=== PATIENT | female | born 1985 | race Caucasian/White ===

== ENCOUNTER → 2018-06-02 18:55 | Observation (INO) ==
[2018-06-02 18:31] LABS: Bilirubin,Urine Negative (Negative); Blood,Urine Negative (Negative); Clarity,Urine Clear (Clear); Color,Urine Dark Yellow (Yellow); Glucose,Urine (UA) Normal (Normal); Ketones,Urine Trace mg/dL (Negative); Leukocyte Esterase,Urine Negative (Negative); Nitrite,Urine Negative (Negative); PH,Urine 5.5 pH Units (5.0-8.0); Protein,Urine Trace mg/dL (Neg-Trace); Specific Gravity,Urine 1.029 (1.010-1.025); Urobilinogen,Urine Normal (Normal)
[2018-06-02 18:34] LABS: Bacteria,Urine None Seen per hpf (None-Few); Hyaline Casts,Urine None Seen per lpf (None-Few); RBC,Urine 0-3 per hpf (0-3); Squamous Epithelial Cell,Urine Many per lpf (None-Few)
[2018-06-02 18:40] LABS: Amphetamine Screen,Urine Negative ng/mL (Cutoff=1000); Barbiturate Screen,Urine Negative ng/mL (Cutoff=200); Benzodiazepines Screen,Urine Negative ng/mL (Cutoff=200); Cannabinoid Screen,Urine Negative ng/mL (Cutoff = 50); Cocaine Screen,Urine Negative ng/mL (Cutoff= 300); Opiate Screen,Urine Negative ng/mL (Cutoff=300); Phencyclidine Screen,Urine Negative ng/mL (Cutoff=25)
[2018-06-02 18:50] LABS: Calcium Oxalate Crystals,Urine Present
--- NOTE | 2018-06-02 18:54 | Discharge Summary ---
Date of Encounter: 06/02/18 Time of Encounter: 18:54 - Discharge Diagnosis (1) 18 weeks gestation of Priority: Secondary Status: Acute Comments: Follow up with Dr. Vazquez as scheduled Discharge home (2) Back pain affecting in second trimester Priority: Primary Status: Acute Comments: Apply heat prn massage prn Return for worsening symptoms - Discharge Medications Home Medications: Acetaminophen [Tylenol] 650 mg PO Q6H PRN tablet 06/02/18 [Rx] Lantus 15 units SQ DAILY 06/02/18 [History] Vit Calc,Iron,Folic [ Vitamins] 1 tab PO DAILY 06/02/18 [ History] metFORMIN [Glucophage] 750 mg PO BID 06/02/18 [History] Allergies/Adverse Reactions: 3 Allergy/AdvReac Type Severity Reaction Status Date / Time No Known Allergies Allergy Verified 06/02/18 18:08 Data Procedures and tests throughout hospitalization: Laboratory Tests 06/02/18 06/02/18 18:20 18:20 Urine Color Dark Yellow Urine Clarity Clear Urine pH 5.5 Ur Specific [place] 1.029 H Urine Protein Trace Urine Glucose (UA) Normal Urine Ketones Trace H Urine Blood Negative Urine Nitrite Negative Urine Bilirubin Negative Urine Urobilinogen Normal Ur Leukocyte Esterase Negative Urine Microscopic RBC 0-3 Urine Microscopic WBC 3-5 H Ur Squamous Epith Cells Many H Calcium Oxalate Crystal Present Urine Bacteria None Seen Hyaline Casts None Seen Ur Culture Indicated? NO Urine Opiates Screen Negative Ur Barbiturates Screen Negative Ur Phencyclidine Scrn Negative Ur Amphetamines Screen Negative U Benzodiazepines Scrn Negative Urine Cocaine Screen Negative U Marijuana (THC) Screen Negative Ur Drug Screen Interp See Below Labs on day of discharge: Labs from last 24 hours 06/02/18 06/02/18 18:20 18:20 Urine Color Dark Yellow Urine Clarity Clear Urine pH 5.5 Ur Specific [place] 1.029 H Urine Protein Trace Urine Glucose (UA) Normal Urine Ketones Trace H Urine Blood Negative Urine Nitrite Negative Urine Bilirubin Negative Urine Urobilinogen Normal Ur Leukocyte Esterase Negative Urine Microscopic RBC 0-3 Urine Microscopic WBC 3-5 H Ur Squamous Epith Cells Many H Calcium Oxalate Crystal Present Urine Bacteria None Seen Hyaline Casts None Seen Ur Culture Indicated? NO Urine Opiates Screen Negative Ur Barbiturates Screen Negative Ur Phencyclidine Scrn Negative Ur Amphetamines Screen Negative U Benzodiazepines Scrn Negative Urine Cocaine Screen Negative U Marijuana (THC) Screen Negative Ur Drug Screen Interp See Below Date of admission: 06/02/18 17:53 Discharging clinician: Geneva Castillo Anticipated date of discharge: 06/02/18 - Patient Status Disposition: Home, Self-Care Condition: Good Functional capacity at discharge: independent ambulation Overall status at discharge: patient is progressing back to baseline - Discharge Instructions Follow Up With: Maggi Vazquez MD [Partnered Physician] - - Diet and Activity Activity: increase activity as tolerated Diet: regular diet Hospital Course [employer] Reason for admission: other Discharge diagnosis: other Hospital course: Ms. Werner presents with c/o right sided low back pain with urinary urgency, frequency, and dysuria since 1900 last night. She also c/o "not feeling right". Urinary tests negative. Increase hydration. Time Attestation: Total time spent providing and/or coordinating discharge services: Time Spent: Less than 30 minutes Exam - Constitutional General appearance IM: A&O X 3, morbidly obese, pleasant, no acute distress, answers questions appropriately - Respiratory Respiratory exam: Present: CTAB - Cardiovascular Cardiovascular exam IM: Present: RRR, +S1, +S2 - GI/Abdominal GI/Abdominal exam IM: normal bowel sounds, no peritoneal signs - Rectal Rectal exam: deferred - Uterine Tone: Firm - Extremities Exam Extremities exam IM: Present: normal inspection, radial pulses palpable and symmetrical - Neurological Exam Neurological exam: alert, CN II-XII intact, normal gait, oriented X3, reflexes normal, no focal deficits, strengths equal and symetr throughout - VTE Reasons for not Prescribing Prophylaxis: Treatment not Indicated - Low risk for VTE
[~2018-06-02 18:55] MED LIST: Acetaminophen 325 MG TABLET PO PRN
== END | disposition home or self-care (01) ==
LOC: 1NENULAB
PROVIDERS: ADMIT Advanced Practice Midwife; ATTEND Advanced Practice Midwife

== ENCOUNTER → 2018-08-06 21:24 | Observation (INO) ==
[2018-08-06 20:05] LABS: Bilirubin,Urine Negative (Negative); Blood,Urine Negative (Negative); Clarity,Urine Clear (Clear); Color,Urine Yellow (Yellow); Glucose,Urine (UA) Normal (Normal); Ketones,Urine 15 mg/dL (Negative); Leukocyte Esterase,Urine Trace (Negative); Nitrite,Urine Negative (Negative); Protein,Urine Negative (Neg-Trace); Specific Gravity,Urine 1.027 (1.010-1.025); Urobilinogen,Urine Normal (Normal)
[2018-08-06 20:07] LABS: Bacteria,Urine None Seen per hpf (None-Few); Hyaline Casts,Urine None Seen per lpf (None-Few); RBC,Urine 0-3 per hpf (0-3); Squamous Epithelial Cell,Urine Many per lpf (None-Few); WBC,Urine 0-3 per hpf (0-3)
[2018-08-06 20:16] LABS: Amorphous Sediment,Urine Few (Few); Amphetamine Screen,Urine Negative ng/mL (Cutoff=1000); Barbiturate Screen,Urine Negative ng/mL (Cutoff=200); Benzodiazepines Screen,Urine Negative ng/mL (Cutoff=200); Cannabinoid Screen,Urine Negative ng/mL (Cutoff = 50); Cocaine Screen,Urine Negative ng/mL (Cutoff= 300); Opiate Screen,Urine Negative ng/mL (Cutoff=300); Phencyclidine Screen,Urine Negative ng/mL (Cutoff=25)
--- NOTE | 2018-08-06 20:34 | OB/GYN Progress Note ---
Date of Encounter: 08/06/18 Time of Encounter: 20:27 - Assessment and Plan (1) 28 weeks gestation of Current Visit: Yes Status: Acute Fibronectin pending. Discharge home with precautions. Follow-up with Dr. Vazquez & [facility]ON[facility] as scheduled. Plan discussed with Dr. Radford. (2) Increased urinary frequency Current Visit: Yes Status: Acute UA unremarkable. (3) Morbid obesity with BMI of 45.0-49.9, adult Current Visit: Yes Status: Acute (4) Type II diabetes mellitus Current Visit: Yes Status: Acute Patient well controlled with current medication regimen and diet. Qualifiers: Qualified Code(s): E11.9 - Type 2 diabetes mellitus without complications (5) Decreased movement Current Visit: Yes Status: Acute FHT reassuring & appropriate for gestational age. Difficult to trace due to maternal habitus. Dr. Radford reviewed tracing. Kick counts reviewed. Discharge home with return precautions. Qualifiers: Fetus number: single or unspecified fetus Trimester: second trimester Qualified Code(s): O36.8120 - Decreased movements, second trimester, not applicable or unspecified (6) Vaginal pain Current Visit: Yes Status: Acute Pt reports vaginal itching and pressure. Vaginosis panel pending. Subjective - Subjective Principal diagnosis: Vaginal pressure and decreased movement Interval history: 32 y/o at 28w0d presenting with decreased movement and pressure. Denies VB & LOF. Reports the last movement she had felt was around 1230 today with kick counts, but upon arrival to triage began feeling movement. Reports urinary frequency & pressure with voiding; denies burning with urination. Reports vaginal itching. No other complaints. Antepartum ROS: no loss of fluid, no vaginal bleeding, no movement normal, no contractions Objective - Exam FHR: auscultation normal FHR comments: FHT reassuring & appropriate for gestational age. Auscultation: bilateral: normal Abdomen: Present: normal appearance, soft, gravid Cervical dilation: closed Cervix effacement: thick station: high - Labs Labs: Abnormal lab results Ur Specific [place] 1.027 (1.010-1.025) H 08/06/18 19:54 Urine Ketones 15 mg/dL (Negative) H 08/06/18 19:54 Ur Leukocyte Esterase Trace (Negative) H 08/06/18 19:54 Ur Squamous Epith Cells Many per lpf (None-Few) H 08/06/18 19:54 Ur Culture Indicated? NO. (NO) A 08/06/18 19:54
[2018-08-06 21:01] LABS: Gardnerella DNA DETECTED (Not Detect); Trichomonas DNA Not Detected (Not Detect)
[2018-08-06 21:02] LABS: Candida DNA DETECTED (Not Detect)
== END | disposition home or self-care (01) ==
LOC: 1NENULAB
PROVIDERS: ADMIT Obstetrics & Gynecology; ATTEND Obstetrics & Gynecology

== ENCOUNTER → 2018-08-28 17:38 | Observation (INO) ==
[2018-08-28 16:42] LABS: Bilirubin,Urine Negative (Negative); Blood,Urine Negative (Negative); Clarity,Urine Clear (Clear); Color,Urine Yellow (Yellow); Glucose,Urine (UA) Normal (Normal); Ketones,Urine Negative (Negative); Leukocyte Esterase,Urine Negative (Negative); Nitrite,Urine Negative (Negative); PH,Urine 6.5 pH Units (5.0-8.0); Protein,Urine Negative (Neg-Trace); Specific Gravity,Urine 1.008 (1.010-1.025); Urobilinogen,Urine Normal (Normal)
--- NOTE | 2018-08-28 16:49 | OB/GYN Progress Note ---
Date of Encounter: 08/28/18 Time of Encounter: 16:47 - Assessment and Plan (1) 31 weeks gestation of Current Visit: Yes Status: Acute NST reactive - appropriate for gestation Urine normal Discharge home with kick counts and labor precautions Follow up in office with routine care and PRN. (2) Decreased movement Current Visit: Yes Status: Acute Qualifiers: Fetus number: single or unspecified fetus Trimester: third trimester Qualified Code(s): O36.8130 - Decreased movements, third trimester, not applicable or unspecified (3) Type II diabetes mellitus Current Visit: No Status: Acute Qualifiers: Diabetes mellitus correction insulin use: unspecified correction insulin use status Diabetes mellitus complication status: without complication Qualified Code(s): E11.9 - Type 2 diabetes mellitus without complications (4) NST (non-stress test) reactive Current Visit: Yes Status: Acute Subjective - Subjective Principal diagnosis: Decreased movement Interval history: Ms Werner is a at 30 weeks 1 day gestation that presents to labor and delivery triage with c/o decreased movement. She states her last ended in a C/S with classical incision delivery. She is an insulin dependent gestational diabetic. She states her baby has only moved twice. She denies headache, vision changes, epigastric pain, leaking of fluid, vaginal bleeding, and cramping/contractions. She is seen by Dr Vazquez and [facility] Antepartum ROS: no movement normal Objective - Vital Signs Vital Signs: Intake and Output 08/28/18 08/28/18 08/28/18 07:59 15:59 23:59 Other: Weight 147.1 kg Patient Weight 08/28/18 23:59 Weight 147.1 kg - Exam Abdomen: Present: normal appearance, soft, gravid Uterus: Present: normal. Absent: firm, tenderness - Labs Labs: Abnormal lab results Ur Specific [place] 1.008 (1.010-1.025) L 08/28/18 16:30
[2018-08-28 18:21] LABS: Amphetamine Screen,Urine Negative ng/mL (Cutoff=1000); Barbiturate Screen,Urine Negative ng/mL (Cutoff=200); Benzodiazepines Screen,Urine Negative ng/mL (Cutoff=200); Cannabinoid Screen,Urine Negative ng/mL (Cutoff = 50); Cocaine Screen,Urine Negative ng/mL (Cutoff= 300); Opiate Screen,Urine Negative ng/mL (Cutoff=300); Phencyclidine Screen,Urine Negative ng/mL (Cutoff=25)
== END | disposition home or self-care (01) ==
LOC: 1NENULAB
PROVIDERS: ADMIT Student in an Organized Health Care Education/Training Program; ATTEND Student in an Organized Health Care Education/Training Program

== ENCOUNTER → 2018-09-17 13:52 | Observation (INO) ==
[2018-09-17 10:33] LABS: Bilirubin,Urine Negative (Negative); Blood,Urine Negative (Negative); Clarity,Urine Cloudy (Clear); Color,Urine Dark Yellow (Yellow); Glucose,Urine (UA) Normal (Normal); Ketones,Urine Trace mg/dL (Negative); Leukocyte Esterase,Urine Moderate (Negative); Nitrite,Urine Negative (Negative); Protein,Urine Trace mg/dL (Neg-Trace); Specific Gravity,Urine 1.017 (1.010-1.025); Urobilinogen,Urine Normal (Normal)
[2018-09-17 10:37] LABS: Bacteria,Urine Few per hpf (None-Few); Hyaline Casts,Urine None Seen per lpf (None-Few); Squamous Epithelial Cell,Urine Many per lpf (None-Few); WBC,Urine 30-50 per hpf (0-3)
[2018-09-17 11:28] LABS: Estimated Average Glucose 111 mg/dl; Hemoglobin A1C 5.5 %
[2018-09-17 11:45] LABS: Mucus,Urine Few (Few)
[2018-09-17 12:55] LABS: Basophils % 0.2 %; Eosinophils # 0.1 K/mcL (0.0-0.6); Eosinophils % 1.4 %; Hematocrit 32.8 % (35.3-44.9); Hemoglobin 11.1 g/dL (11.5-15.4); Immature Granulocytes % 0.4 % (0-4); Lymphocytes # 1.8 K/mcL (0.6-4.6); Lymphocytes % 17.7 %; Mean Corpuscular HGB Conc 33.8 g/dL (31.6-35.5); Mean Corpuscular Hemoglobin 29.1 pg (28.0-33.3); Mean Corpuscular Volume 86.1 fL (83.0-100.0); Mean Platelet Volume 10.4 fL (9.4-12.4); Monocytes # 0.4 K/mcL (0.0-1.3); Neutrophils # 7.5 K/mcL (1.6-8.9); Platelet Count 190 K/mcL (140-400); Red Blood Count 3.81 M/mcL (3.82-4.97); Red Cell Distribution Width 14.6 % (11.5-14.5); Segmented Neutrophils % 76.3 %
[2018-09-17 13:27] LABS: Alanine Aminotransferase 16 Units/L (7-52); Albumin 3.1 g/dL (3.5-5.7); Alkaline Phosphatase 77 Units/L (34-104); Aspartate Amino Transferase 12 Units/L (13-39); BUN/Creatinine Ratio 18 (6-26); Bilirubin,Total 0.4 mg/dL (0.3-1.0); Blood Urea Nitrogen 10 mg/dL (6-20); Calcium 8.7 mg/dL (8.6-10.3); Carbon Dioxide 21 mEq/L (23-29); Chloride 110 mEq/L (98-107); Glucose 110 mg/dL (70-105); Osmolality,Calculated 286 (280-300); Phosphorous 3.4 mg/dL (2.7-4.5); Potassium 4.3 mEq/L (3.5-5.1); Sodium 138 mEq/L (136-145); Total Protein 6.1 g/dL (6.4-8.9); eGFR For Non-African Americans > 60 (> 60)
[2018-09-17 13:31] LABS: Amphetamine Screen,Urine Negative ng/mL (Cutoff=1000); Barbiturate Screen,Urine Negative ng/mL (Cutoff=200); Benzodiazepines Screen,Urine Negative ng/mL (Cutoff=200); Cannabinoid Screen,Urine Negative ng/mL (Cutoff = 50); Cocaine Screen,Urine Negative ng/mL (Cutoff= 300); Opiate Screen,Urine Negative ng/mL (Cutoff=300); Phencyclidine Screen,Urine Negative ng/mL (Cutoff=25)
--- NOTE | 2018-09-17 13:50 | OB/GYN Progress Note ---
Date of Encounter: 09/17/18 Time of Encounter: 13:48 - Assessment and Plan (1) Decreased movement Current Visit: No Status: Acute NST reactive Qualifiers: Fetus number: single or unspecified fetus Trimester: third trimester Qualified Code(s): O36.8130 - Decreased movements, third trimester, not applicable or unspecified (2) Morbid obesity with BMI of 45.0-49.9, adult Current Visit: No Status: Acute (3) NST (non-stress test) reactive Current Visit: No Status: Acute (4) Type II diabetes mellitus Current Visit: No Status: Acute Given pt c/o nausea with IDDM labs were collected and are grossly normal. Discharge home with strict return precautions. POC discussed with Dr. Radford. 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 She is an insulin dependent diabetic. She reports some intermittent mild nausea and occassional cramping. No regular contractions. No leaking or bleeding. Antepartum ROS: contractions, no loss of fluid, no vaginal bleeding Objective - Vital Signs Vital Signs: Intake and Output 09/16/18 09/17/18 09/17/18 23:59 07:59 15:59 Other: Weight 148.4 kg Patient Weight 09/17/18 23:59 Weight 148.4 kg - Exam FHR: category 1 FHR comments: 150 BPM, reactive NST Abdomen: Present: soft, gravid Uterus: Absent: tenderness Cervical dilation: closed Cervix effacement: thick station: high - Labs Labs: Abnormal lab results RBC 3.81 M/mcL (3.82-4.97) L 09/17/18 12:35 Hgb 11.1 g/dL (11.5-15.4) L 09/17/18 12:35 Hct 32.8 % (35.3-44.9) L 09/17/18 12:35 RDW 14.6 % (11.5-14.5) H 09/17/18 12:35 Chloride 110 mEq/L (98-107) H 09/17/18 12:33 Carbon Dioxide 21 mEq/L (23-29) L 09/17/18 12:33 Creatinine 0.57 mg/dL (0.60-1.20) L 09/17/18 12:33 Glucose 110 mg/dL (70-105) H 09/17/18 12:33 AST 12 Units/L (13-39) L 09/17/18 12:33 Serum Total Protein 6.1 g/dL (6.4-8.9) L 09/17/18 12:33 Albumin 3.1 g/dL (3.5-5.7) L 09/17/18 12:33 Albumin/Globulin Ratio 1.0 (1.1-2.2) L 09/17/18 12:33 Urine Clarity Cloudy (Clear) A 09/17/18 10:13 Urine Ketones Trace mg/dL (Negative) H 09/17/18 10:13 Ur Leukocyte Esterase Moderate (Negative) H 09/17/18 10:13 Urine Microscopic WBC 30-50 per hpf (0-3) H 09/17/18 10:13 Ur Squamous Epith Cells Many per lpf (None-Few) H 09/17/18 10:13 Ur Culture Indicated? NO. (NO) A 09/17/18 10:13
[~2018-09-17 13:52] MED LIST changes: +0.9 % Sodium Chloride 1,000 ML IVC SCH; -Acetaminophen 325 MG TABLET PO PRN
[2018-09-17 15:00] LABS: Calcium Oxalate Crystals,Urine Present; Yeast,Urine Few per hpf (None Seen)
== END | disposition home or self-care (01) ==
LOC: 1NENULAB
PROVIDERS: ADMIT Registered Nurse; ATTEND Registered Nurse